=== PATIENT | female | born 1930 | race Caucasian/White ===

== ENCOUNTER 2017-09-09 11:50 | Emergency (ER) | payer MEDICARE ==
--- NOTE | 2017-09-09 13:48 | ER Document Report ---
ED Blood Pressure Problem - General Chief Complaint: Low Blood Pressure Stated Complaint: BLOOD PRESSURE PROBLEM Time Seen by Provider: 09/09/17 13:47 Notes: patient patient is an 87-year-old female who presents emergency department with a chief complaint of hypotension. Daughter states that they have a blood pressure cuff at home that was reading with a systolic less than 80. She admits that over the past 2-3 weeks after taking her morning atenolol and diuretic that she has periods of dizziness and lightheadedness that last for a couple hours and resolve in the afternoon. They have not followed with her primary care provider regarding this. There is no associated focal weakness, numbness or tingling. History of hypertension, hypothyroidism status post Graves' disease intersection , depression and recurrent UTIs follows [facility] TRAVEL OUTSIDE OF THE [place] IN LAST 30 DAYS: No - Related Data Allergies/Adverse Reactions: Sulfa (Sulfonamide Antibiotics) Allergy (Verified 09/09/17 11:53) Past Medical History - Social History Smoking Status: Never Smoker Family History: Reviewed & Not Pertinent Review of Systems - Review of Systems Constitutional: See HPI Cardiovascular: No symptoms reported Respiratory: No symptoms reported Gastrointestinal: No symptoms reported Genitourinary: No symptoms reported Musculoskeletal: No symptoms reported Neurological/Psychological: See HPI -: Yes All other systems reviewed and negative Physical Exam - Vital signs Vitals: Resp Pulse Ox 15 100 09/09/17 13:09 09/09/17 13:09 - Notes Notes: PHYSICAL EXAM GENERAL: Alert, interacts well. HEAD: Normocephalic, atraumatic. EYES: Pupils equal, round, and reactive to light. Extraocular movements intact. ENT: Oral mucosa moist, tongue midline. NECK: Full range of motion. Supple. Trachea midline. LUNGS: Clear to auscultation bilaterally, no wheezes, rales, or rhonchi. No respiratory distress. HEART: Regular rate and rhythm. No murmurs, gallops, or rubs. ABDOMEN: Soft, nondistended, nontender. No guarding, rebound, or rigidity.. Bowel sounds present in all 4 quadrants. EXTREMITIES: Moves all 4 extremities spontaneously. No edema, radial and dorsalis pedis pulses 2/4 bilaterally. No cyanosis. NEUROLOGICAL: Alert and oriented x4. Face symmetric. Tongue protrudes midline. Extraocular motions intact. Pupils are 2 mm and equally reactive. Normal speech, normal gait. 5 out of 5 strength in both the distal and proximal upper and lower extremities bilaterally. Sensation is grossly intact throughout. Finger to nose testing normal. Pronator drift normal. PSYCH: Normal affect, normal mood. SKIN: Warm, dry, normal turgor. No rashes or lesions noted. Course - Re-evaluation Re-evalutation: 09/09/17 14:42 Patient is an 87-year-old female who presents emergency department the chief complaint of dizziness that is been every day after taking her morning meds. She takes 50 mg of atenolol and is on 25 mg bilateral hydrochlorothiazide. Patient able to ambulate without any difficulty without any associated dizziness , orthostatic hypotension. No evidence of positional tachycardia. Patient denies any symptoms at this time. EKG does show occasional PACs without any evidence of ST elevations. Patient has been chest pain-free. Did review this workup with family at the bedside who is requesting blood work to be drawn given her age 0509/09/17 16:20 CBC stable without evidence of leukocytosis or anemia. Chemistry does show mild hyponatremia at 131. Patient's troponin is negative. Family requesting a copy of blood work to be discharged home. Did recommend to hold the a.m. dose of atenolol and to follow-up with primary care tomorrow. - Vital Signs Vital signs: Temp Pulse Resp BP Pulse Ox 63 15 150/84 H 98 09/09/17 14:16 09/09/17 13:09 09/09/17 14:16 09/09/17 13:10 - Laboratory Result Diagrams: 09/09/17 15:05 09/09/17 15:05 Laboratory results interpreted by ne: 09/09/17 15:05 Sodium 131.8 L Chloride 93 L BUN 24 H Glucose 113 H - EKG Interpretation by Ma EKG shows normal: Sinus rhythm Rate: Normal Rhythm: APC's When compared to previous EKG there are: Previous EKG unavailable Discharge - Discharge Clinical Impression: Hypotension Condition: Good Disposition: HOME, SELF-CARE Instructions: Hypotension ([facility]) Additional Instructions: Please hold her a.m. dose of atenolol and follow-up with your primary care tomorrow Referrals: MICKEY GARCIA PA-C [Primary Care Provider] - Follow up tomorrow
--- NOTE | 2017-09-09 14:50 | EKG REPORT ---
SEVERITY:- OTHERWISE NORMAL ECG - SINUS RHYTHM ATRIAL PREMATURE COMPLEX : Confirmed by: Juice Mann MD 09-Sep-2017 14:50:07
[2017-09-09 15:54] LABS: ABSOLUTE BASOPHILS # (AUTO) 0.1 10^3/uL (0.0-0.2); ABSOLUTE EOSINOPHILS # (AUTO) 0.2 10^3/uL (0.0-0.6); ABSOLUTE LYMPHOCYTES (AUTO) 1.2 10^3/uL (0.5-4.7); ABSOLUTE MONOCYTES (AUTO) 0.6 10^3/uL (0.1-1.4); ABSOLUTE NEUT (AUTO) 3.6 10^3/uL (1.7-8.2); BASOPHILS % (AUTO) 1.8 % (0-2); EOSINOPHILS % (AUTO) 3.5 % (0-6); HEMATOCRIT 38.4 % (36.0-47.0); HEMOGLOBIN 12.8 g/dL (12.0-15.5); LYMPHOCYTES % (AUTO) 20.8 % (13-45); MEAN CORPUSCULAR HEMOGLOBIN 30.8 pg (27.0-33.4); MEAN CORPUSCULAR HGB CONC 33.3 g/dL (32.0-36.0); MEAN CORPUSCULAR VOLUME 93 fl (80-97); PLATELET COUNT 206 10^3/uL (150-450); RED BLOOD COUNT 4.15 10^6/uL (3.72-5.28); RED CELL DISTRIBUTION WIDTH 13.9 % (11.5-14.0); SEGMENTED NEUTROPHILS % (AUTO) 62.9 % (42-78); TOTAL CELLS COUNTED % (AUTO) 100 %; WHITE BLOOD COUNT 5.8 10^3/uL (4.0-10.5)
[2017-09-09 16:01] LABS: ALANINE AMINOTRANSFERASE 24 U/L (9-52); ALBUMIN 3.9 g/dL (3.5-5.0); ALKALINE PHOSPHATASE 88 U/L (38-126); ANION GAP 9 (5-19); ASPARTATE AMINO TRANSFERASE 21 U/L (14-36); BILIRUBIN,DIRECT 0.2 mg/dL (0.0-0.4); BILIRUBIN,TOTAL 0.2 mg/dL (0.2-1.3); BLOOD UREA NITROGEN 24 mg/dL (7-20); CALCIUM 9.8 mg/dL (8.4-10.2); CARBON DIOXIDE 30 mmol/L (22-30); CHLORIDE 93 mmol/L (98-107); GLUCOSE 113 mg/dL (75-110); POTASSIUM 4.6 mmol/L (3.6-5.0); SODIUM 131.8 mmol/L (137-145); TOTAL PROTEIN 6.7 g/dL (6.3-8.2)
[2017-09-09 19:49] VITALS: BP 153/86
== END 2017-09-09 16:30 | disposition home or self-care (01) ==
LOC: ER 11:50
DX: I95.9 Hypotension, unspecified (principal); R42 Dizziness and giddiness; E87.1 Hypo-osmolality and hyponatremia; Z88.2 Allergy status to sulfonamides; Z87.440 Personal history of urinary (tract) infections
CPT/HCPCS: 36415; 80053; 84484; 85025; 93005; 93010; 99285

== ENCOUNTER → 2019-02-04 | Outpatient (CLI) | payer MEDICARE ==
--- NOTE | 2019-02-04 16:28 | RADIOLOGY REPORT (SQ) ---
EXAM DESCRIPTION: CT HEAD WITHOUT COMPLETED DATE/TIME: 02/04/2019 3:25 pm REASON FOR STUDY: R41.0 DISORIENTATION, UNSPECIFIED R41.0 DISORIENTATION, UNSPECIFIED COMPARISON: None. TECHNIQUE: Axial images acquired through the brain without intravenous contrast. Images reviewed wi th bone, brain and subdural windows. Additional sagittal and coronal reconstructions were generated. Images stored on PACS. All CT scanners at this facility use dose modulation, iterative reconstruction, and/or weight based d osing when appropriate to reduce radiation dose to as low as reasonably achievable (ALARA). [facility]: Dose Right [facility]: CareDose [facility]: Dose Right [facility]: Teradose 4D [facility]: [employer] RADIATION DOSE: CT Rad equipment meets quality standard of care and radiation dose reduction techniq ues were employed. CTDIvol: 48.6 mGy. DLP: 905 mGy-cm. mGy. LIMITATIONS: None. FINDINGS: VENTRICLES: Prominent ventricles secondary to involutional atrophy. CEREBRUM: Cortical atrophy. No masses. No hemorrhage. No midline shift. No evidence for acute inf arction. Areas of low density in the white matter most likely chronic small vessel ischemic changes. CEREBELLUM: No masses. No hemorrhage. No alteration of density. No evidence for acute infarction. EXTRAAXIAL SPACES: No fluid collections. No masses. ORBITS AND GLOBE: No intra- or extraconal masses. Normal contour of globe without masses. CALVARIUM: No fracture. PARANASAL SINUSES: There is a 14 mm densely calcified/ossified lesion in the lateral wall the left ma xillary sinus. SOFT TISSUES: No mass or hematoma. OTHER: No other significant finding. IMPRESSION: MICROVASCULAR ISCHEMIA AND GENERALIZED ATROPHY. NO ACUTE IMAGING FINDINGS IN THE BRAIN. DENSELY CALCIFIED/ OSSIFIED LESION IN THE LATERAL WALL THE LEFT MAXILLARY SINUS. GENERALLY BENIGN I N APPEARANCE. EVIDENCE OF ACUTE STROKE: NO. COMMENT: Quality ID # [id number]: Final reports with documentation of one or more dose reduction techniques (e.g., Automated exposure control, adjustment of the mA and/or kV according to patient size, use of iterative reconstruction technique) TECHNICAL DOCUMENTATION: JOB ID: [id number] [employer]- All Rights Reserved Reading location - IP/workstation name: [email or web address]
== END ==
LOC: RAD 15:07
PROVIDERS: ATTEND Family Medicine
DX: I67.82 Cerebral ischemia (principal); R41.0 Disorientation, unspecified; G31.9 Degenerative disease of nervous system, unspecified
CPT/HCPCS: 70450

== ENCOUNTER 2019-02-14 14:04 | Emergency (ER) | payer MEDICARE ==
--- NOTE | 2019-02-14 14:57 | ER Document Report ---
ED General - General Chief Complaint: Blood Pressure Problem Stated Complaint: BLOOD PRESSURE CONCERNS Time Seen by Provider: 02/14/19 14:48 Primary Care Provider: KATIANA KITCHEN MD [Primary Care Provider] - Follow up as needed TRAVEL OUTSIDE OF THE [place] IN LAST 30 DAYS: No - HPI Notes: This is a very pleasant 88-year-old female who presents the emergency department for evaluation. Evidently she was sitting in her chair when she yelled out for her granddaughter. She stated that she could not see. Over the course of 20 minutes, her voice became softer and slurred, she continued to get weak. Blood pressure was taken and found to be low, so EMS was called. EMS found her blood pressure to be in the 70s. Patient states that she may have felt dizzy beforehand, but does not really remember specifically. She had a normal morning. Had breakfast, went and took a shower. She currently takes her medications as directed, her granddaughter distributes them to her. No recent changes in her medicines other than the addition of another half of an atenolol in the morning. Otherwise she is had no acute complaints or concerns. She denies any pain at this time. She states she just feels weak. - Related Data Allergies/Adverse Reactions: Sulfa (Sulfonamide Antibiotics) Allergy (Verified 09/09/17 11:53) Past Medical History - General Information source: Patient, Relative - Social History Smoking Status: Never Smoker Chew tobacco use (# tins/day): No Frequency of alcohol use: None Drug Abuse: None Family History: Reviewed & Not Pertinent Patient has suicidal ideation: No Patient has homicidal ideation: No - Past Medical History Cardiac Medical History: Reports: Hx Hypertension EENT Medical History: Reports: Eyes - Glaucoma Endocrine Medical History: Reports: Hx Hypothyroidism Renal/ Medical History: Denies: Hx Peritoneal Dialysis Psychiatric Medical History: Reports: Hx Depression Past Surgical History: Reports: Hx Appendectomy, Hx Cholecystectomy, Hx Hysterectomy, Hx Thyroid Surgery, Hx Tonsillectomy Review of Systems - Review of Systems Constitutional: See HPI EENT: No symptoms reported Cardiovascular: No symptoms reported Respiratory: No symptoms reported Gastrointestinal: No symptoms reported Genitourinary: No symptoms reported Musculoskeletal: No symptoms reported Skin: No symptoms reported Neurological/Psychological: See HPI Physical Exam - Vital signs Vitals: Temp Resp BP Pulse Ox 96.6 F L 21 H 153/82 H 96 02/14/19 14:21 02/14/19 14:21 02/14/19 14:21 02/14/19 14:21 - Notes Notes: Vital signs reviewed, please refer to chart. Head is normocephalic, atraumatic. Pupils equal round, reactive to light. Neck is supple without meningismus. Heart is regular rate and rhythm. Lungs are clear to auscultation bilaterally. Abdomen is soft, nontender, normoactive bowel sounds throughout. Extremities without cyanosis, clubbing. Posterior calves are nontender. Peripheral pulses are equal. Skin is warm and dry. Patient is awake, alert, disoriented to time but oriented to place. Cranial nerves II - XII are grossly intact without focal neurological deficits. Strength is plus 4 out of 5 bilateral upper and lower extremities. Sensation is intact. Reflexes symmetrical. Intact ktlivo-kiqk-ejlqgm, rapid alternating movements, gdpm-ya-salo. Course - Re-evaluation Re-evalutation: 02/14/19 18:03 Patient presents emergency department for evaluation. She had transiently low blood pressure. She was placed on a monitor car operator, septic labs were obtained. She is a normal neurological exam. Her blood pressure normalized here and never lowered again. In fact she became hypertensive, was given her afternoon dose of lisinopril. Her work-up here is essentially unremarkable, with the exception of her chest x-ray. Chest x-ray revealed widened mediastinum and concern for her aorta. This was discussed with family. Decision was made to proceed with CT of the chest to evaluate her aorta. 02/14/19 20:48 CT scan revealed significant thoracic and abdominal aortic aneurysms. Patient's blood pressure became higher at this point. I spoke with Dr. Bourne, vascular surgeon at [facility]. He asked that patient's blood pressure be managed aggressively, her heart rate kept below 70. She was given her first dose of metoprolol IV here. We will continue to monitor. He except the patient in transfer to the CVICU. 02/14/19 21:35 Patient did not respond to IV metoprolol. Given labetalol. Initially she responded well, but 15 minutes later patient's blood pressure is up to 172/103. Her heart rate remains in the 70s. Decision made to proceed with nicardipine drip, with as needed labetalol if blood pressure is greater than 160 and heart rate is greater than 70. - Vital Signs Vital signs: Temp Pulse Resp BP Pulse Ox 97.6 F 18 172/103 H 91 L 02/14/19 18:38 02/14/19 21:31 02/14/19 21:31 02/14/19 21:31 - Laboratory Result Diagrams: 02/14/19 16:10 02/14/19 16:10 Laboratory results interpreted by me: 02/14/19 02/14/19 02/14/19 15:43 16:10 16:10 RDW 14.1 H Sodium 134.9 L Carbon Dioxide 31 H POC Glucose 115 H - Diagnostic Test Radiology reviewed: Image reviewed, Reports reviewed - EKG Interpretation by Me Additional EKG results interpreted by me: 02/14/19 15:05 Sinus mechanism with rate of 72 bpm. Normal axis and intervals, no acute ST changes concerning for ischemia or infarction. Critical Care Note - Critical Care Note Total time excluding time spent on procedures (mins): 40 Discharge - Discharge Clinical Impression: Transient hypotension Thoracic aortic aneurysm Qualifiers: Presence of rupture: without rupture Qualified Code(s): I71.2 - Thoracic aortic aneurysm, without rupture Abdominal aortic aneurysm (AAA) Qualifiers: Presence of rupture: without rupture Qualified Code(s): I71.4 - Abdominal aortic aneurysm, without rupture Condition: Stable Disposition: [facility]CLUD[facility] Admitting Provider: Dr. Bourne Referrals: KATIANA KITCHEN MD [Primary Care Provider] - Follow up as needed
[2019-02-14 15:35] LABS: APPEARANCE,URINE CLEAR; BILIRUBIN,URINE NEGATIVE (NEGATIVE); COLOR,URINE YELLOW; GLUCOSE, URINE NEGATIVE (NEGATIVE); KETONES,URINE NEGATIVE (NEGATIVE); PROTEIN,URINE NEGATIVE (NEGATIVE); URINE SPECIFIC GRAVITY 1.005; UROBILINOGEN,URINE NEGATIVE mg/dL (<2.0)
--- NOTE | 2019-02-14 15:39 | EKG REPORT ---
SEVERITY:- ABNORMAL ECG - SINUS RHYTHM New T inversion anteroseptal leads V2. compared to 09/09/17 EKG : Confirmed by: Juice Mann MD 14-Feb-2019 15:39:08
[2019-02-14 16:22] LABS: ABSOLUTE BASOPHILS # (AUTO) 0.1 10^3/uL (0.0-0.2); ABSOLUTE EOSINOPHILS # (AUTO) 0.1 10^3/uL (0.0-0.6); ABSOLUTE LYMPHOCYTES (AUTO) 0.9 10^3/uL (0.5-4.7); ABSOLUTE MONOCYTES (AUTO) 0.5 10^3/uL (0.1-1.4); ABSOLUTE NEUT (AUTO) 3.8 10^3/uL (1.7-8.2); BASOPHILS % (AUTO) 0.9 % (0-2); EOSINOPHILS % (AUTO) 1.2 % (0-6); HEMOGLOBIN 12.4 g/dL (12.0-15.5); LYMPHOCYTES % (AUTO) 16.3 % (13-45); MEAN CORPUSCULAR HEMOGLOBIN 29.9 pg (27.0-33.4); MEAN CORPUSCULAR HGB CONC 32.6 g/dL (32.0-36.0); MEAN CORPUSCULAR VOLUME 92 fl (80-97); MONOCYTES % (AUTO) 10.1 % (3-13); PLATELET COUNT 175 10^3/uL (150-450); RED BLOOD COUNT 4.14 10^6/uL (3.72-5.28); RED CELL DISTRIBUTION WIDTH 14.1 % (11.5-14.0); SEGMENTED NEUTROPHILS % (AUTO) 71.5 % (42-78); TOTAL CELLS COUNTED % (AUTO) 100 %; WHITE BLOOD COUNT 5.4 10^3/uL (4.0-10.5)
[2019-02-14 16:32] LABS: INTERNATIONAL RATION (INR) 0.97; PROTHROMBIN TIME 12.9 SEC (11.4-15.4)
[2019-02-14 16:49] LABS: ALBUMIN 3.5 g/dL (3.5-5.0); ALKALINE PHOSPHATASE 117 U/L (38-126); ANION GAP 5 (5-19); ASPARTATE AMINO TRANSFERASE 16 U/L (14-36); BILIRUBIN,DIRECT 0.2 mg/dL (0.0-0.4); BILIRUBIN,TOTAL 0.4 mg/dL (0.2-1.3); BLOOD UREA NITROGEN 13 mg/dL (7-20); CALCIUM 9.3 mg/dL (8.4-10.2); CARBON DIOXIDE 31 mmol/L (22-30); CHLORIDE 99 mmol/L (98-107); GLUCOSE 101 mg/dL (75-110); POTASSIUM 4.5 mmol/L (3.6-5.0); TOTAL PROTEIN 6.4 g/dL (6.3-8.2)
--- NOTE | 2019-02-14 17:44 | RADIOLOGY REPORT (SQ) ---
EXAM DESCRIPTION: CHEST 2 VIEWS COMPLETED DATE/TIME: 02/14/2019 5:24 pm REASON FOR STUDY: hypotension COMPARISON: None. EXAM PARAMETERS: NUMBER OF VIEWS: two views TECHNIQUE: Digital Frontal and Lateral radiographic views of the chest acquired. RADIATION DOSE: NA LIMITATIONS: none FINDINGS: LUNGS AND PLEURA: No opacities, masses or pneumothorax. No pleural effusion. MEDIASTINUM AND HILAR STRUCTURES: Widened mediastinum with an enlarged and protrudes appearing thorac ic aorta. Rightward tracheal deviation at the level of the thoracic aorta. HEART AND VASCULAR STRUCTURES: Heart normal size. No evidence for failure. BONES: No acute findings. HARDWARE: None in the chest. OTHER: No other significant finding. IMPRESSION: Widened mediastinum with an enlarged and tortuous appearing thoracic aorta. In the prov ided clinical setting of hypertension, these findings are concerning for dissection. TECHNICAL DOCUMENTATION: JOB ID: [id number] [employer]- All Rights Reserved Reading location - IP/workstation name: [email or web address]
[2019-02-14 18:03] LABS: VENOUS BLOOD BASE EXCESS 3.1 mmol/L; VENOUS BLOOD HCO3 29.9 mmol/L (20-32); VENOUS BLOOD PCO2 55.4 mmHg (35-63); VENOUS BLOOD PH 7.35 (7.30-7.42)
--- NOTE | 2019-02-14 19:53 | RADIOLOGY REPORT (SQ) ---
EXAM DESCRIPTION: CTA CHEST COMPLETED DATE/TIME: 02/14/2019 6:59 pm REASON FOR STUDY: eval aorta COMPARISON: Chest radiographs earlier performed on 02/14/2019 TECHNIQUE: CT scan of the chest performed using helical scanning technique with dynamic intravenous contrast injection. Images reviewed with lung, soft tissue and bone windows. Reconstructed coronal and sagittal MPR images reviewed. Additional 3 dimensional post-processing performed to develop Maximal Intensity Projection images (NE P). All images stored on PACS. All CT scanners at this facility use dose modulation, iterative reconstruction, and/or weight based d osing when appropriate to reduce radiation dose to as low as reasonably achievable (ALARA). [facility]: Dose Right [facility]: CareDose [facility]: Dose Right [facility]: Teradose 4D [facility]: [employer] CONTRAST TYPE AND DOSE: contrast/concentration: Isovue 350.00 mg/ml; Total Contrast Delivered: 52.0 ml; Total Saline Delivered: 78.0 ml 52 mL Isovue 350- low osmolar. Contrast bolus optimized for the thoracic aorta. Not diagnostic for the pulmonary arteries. RENAL FUNCTION: BUN 13, creatinine 0.85 RADIATION DOSE: CT Rad equipment meets quality standard of care and radiation dose reduction techniq ues were employed. CTDIvol: 14.3 - 23.2 mGy. DLP: 451 mGy-cm. . LIMITATIONS: None. FINDINGS: LUNGS AND PLEURA: Strandy bibasilar densities likely representing atelectasis. 1.1 cm lef t lower lobe solid pulmonary nodule (Image 87). No pneumothorax or pleural effusion. AORTA AND GREAT VESSELS: Aneurysmal dilatation of the thoracic aorta with the mid to distal descendin g thoracic aorta measuring up to 5 cm in diameter. Aneurysmal dilatation of the proximal abdominal a xi measuring 3.4 cm in diameter. Intramural plaque extending from the aortic arch to the proximal abdominal aorta. Crescentic intramural plaque most part 1 from the mid to distal thoracic aorta, alt stephen demonstrates no increased attenuation. No dissection flap identified. HEART: No pericardial effusion. No significant coronary artery calcifications. PULMONARY ARTERIES: Mild enlargement of the main pulmonary artery measuring 3.5 cm. No large emboli visualized in the main pulmonary arteries or the segmental branches. HILAR AND MEDIASTINAL STRUCTURES: No identified masses or abnormal nodes. HARDWARE: None in the chest. UPPER ABDOMEN: Calcified splenic granuloma. Incompletely visualized 1.6 cm right kidney superior abhi e cystic lesion. THYROID AND OTHER SOFT TISSUES: No masses. No adenopathy. BONES: No acute or significant finding. 3D MIPS: Confirm above findings. OTHER: No other significant finding. IMPRESSION: Descending thoracic aortic aneurysm measuring 5 cm. Intramural plaque most prevalent wi thin the mid to distal thoracic aorta without demonstrable hyperattenuation to suggest intramural hem atoma. However note that intramural hematoma is difficult to exclude as this is a contrasted contras t study. No dissection. Proximal abdominal aortic aneurysm measuring 3.4 cm. Mild enlargement of the main pulmonary artery measuring 3.5 cm, finding which may be seen with pulmon susan arterial hypertension. Incidental solitary left basilar 11 mm solid pulmonary nodule. Per Fleischner Society guidelines con orthodontist follow up CT at 3 months, PET-CT or tissue sampling. COMMENT: Quality ID # 436: Final reports with documentation of one or more dose reduction techniques (e.g., Automated exposure control, adjustment of the mA and/or kV according to patient size, use of iterative reconstruction technique) TECHNICAL DOCUMENTATION: JOB ID: [id number] [employer]- All Rights Reserved Reading location - IP/workstation name: [email or web address]
[2019-02-14] MEDS ORDERED: METOPROLOL TARTRATE PF/INJ 5 MG/5 ML SDV IV ONE (20:34)
[2019-02-14] MEDS ORDERED: LABETALOL HCL INJ 20 MG/4 ML DISP.SYRIN IV ONE (21:01)
[2019-02-14] MEDS ORDERED: NICARDIPINE HCL RTU, ISO-OS 20 MG/200 ML RTUINJ IV PRN (21:34)
[2019-02-14 22:26] VITALS: BP 161/94
== END 2019-02-14 22:26 | disposition short-term general hospital (02) ==
LOC: ER 14:04
DX: I95.9 Hypotension, unspecified (principal); I71.2 Thoracic aortic aneurysm, without rupture; I71.4 Abdominal aortic aneurysm, without rupture; R53.1 Weakness; I10 Essential (primary) hypertension; Z79.899 Other long term (current) drug therapy; Z88.2 Allergy status to sulfonamides
CPT/HCPCS: 93005; 36415; 87040; 82962; 84443; 85025; 85610; 80053; 81001; 84484; 82803; 83605; 71046; 71275; 93010; J3490 ×3; 51701; 96365; 96375; 99291

== ENCOUNTER → 2019-04-09 | Outpatient (CLI) | payer MEDICARE ==
--- NOTE | 2019-04-09 12:45 | RADIOLOGY REPORT (SQ) ---
EXAM DESCRIPTION: T SPINE AP/LAT COMPLETED DATE/TIME: 04/09/2019 12:24 pm REASON FOR STUDY: FALL, INITIAL ENCOUNTER/ACUTE MIDLINE BACK PAIN W19.XXXA UNSPECIFIED FALL, INITIA L ENCOUNTER M54.5 LOW BACK PAIN R07.81 PLEURODYNIA COMPARISON: None. NUMBER OF VIEWS: Two views. TECHNIQUE: AP and lateral radiographic images acquired of the thoracic spine. LIMITATIONS: None. FINDINGS: MINERALIZATION: Decreased. ALIGNMENT: Normal. No scoliosis. VERTEBRAE: No fracture or bone lesion. Maintained height, normal segmentation. DISCS: Mild multilevel spondylosis. HARDWARE: None in the spine. Prior cholecystectomy. MEDIASTINUM AND SOFT TISSUES: Unfolded thoracic aorta. VISUALIZED LUNG PASTRANA: Clear. OTHER: No other significant finding. IMPRESSION: No evidence of acute bony abnormality of the thoracic spine. Decreased osseous mineralization. TECHNICAL DOCUMENTATION: JOB ID: [id number] [employer]- All Rights Reserved Reading location - IP/workstation name: [email or web address]
--- NOTE | 2019-04-09 12:47 | RADIOLOGY REPORT (SQ) ---
EXAM DESCRIPTION: CHEST 2 VIEWS COMPLETED DATE/TIME: 04/09/2019 12:24 pm REASON FOR STUDY: RIB PAIN ON RIGHT SIDE COMPARISON: 02/14/2019 EXAM PARAMETERS: NUMBER OF VIEWS: two views TECHNIQUE: Digital Frontal and Lateral radiographic views of the chest acquired. RADIATION DOSE: NA LIMITATIONS: none FINDINGS: LUNGS AND PLEURA: No opacities, masses or pneumothorax. No pleural effusion. MEDIASTINUM AND HILAR STRUCTURES: No masses or contour abnormalities. HEART AND VASCULAR STRUCTURES: Ectasia and tortuosity of the descending aorta. BONES: No acute findings. HARDWARE: None in the chest. OTHER: No other significant finding. IMPRESSION: Ectasia and tortuosity of the descending aorta. No acute pulmonary findings. TECHNICAL DOCUMENTATION: JOB ID: [id number] [employer]- All Rights Reserved Reading location - IP/workstation name: [email or web address]
--- NOTE | 2019-04-09 12:47 | RADIOLOGY REPORT (SQ) ---
EXAM DESCRIPTION: RIBS RIGHT W/O PA CHEST COMPLETED DATE/TIME: 04/09/2019 12:24 pm REASON FOR STUDY: RIB PAIN ON RIGHT SIDE W19.XXXA UNSPECIFIED FALL, INITIAL ENCOUNTER M54.5 LOW BA CK PAIN R07.81 PLEURODYNIA COMPARISON: None. NUMBER OF VIEWS: Two views. TECHNIQUE: Images acquired of the right ribs in the area of focal concern. LIMITATIONS: None. FINDINGS: RIBS: No acute displaced fracture. No worrisome bone lesions. Decreased osseous minerali zation. LUNGS: Limited exam. No obvious pneumothorax. No pleural effusion. OTHER: Prior cholecystectomy. IMPRESSION: No rib fracture identified. COMMENT: SITE OF TRAUMA/COMPLAINT MARKED/STAMP COMPLETED: NO. TECHNICAL DOCUMENTATION: JOB ID: [id number] [employer]- All Rights Reserved Reading location - IP/workstation name: [email or web address]
--- NOTE | 2019-04-09 12:49 | RADIOLOGY REPORT (SQ) ---
EXAM DESCRIPTION: L SPINE WHOLE COMPLETED DATE/TIME: 04/09/2019 12:24 pm REASON FOR STUDY: FALL, INITIAL ENCOUNTER/ACUTE MIDLINE BACK PAIN W19.XXXA UNSPECIFIED FALL, INITIA L ENCOUNTER M54.5 LOW BACK PAIN R07.81 PLEURODYNIA COMPARISON: None. NUMBER OF VIEWS: Five views including obliques. TECHNIQUE: AP, lateral, oblique, and sacral radiographic images acquired of the lumbar spine. LIMITATIONS: None. FINDINGS: MINERALIZATION: Normal. SEGMENTATION: Normal. No transitional anatomy. ALIGNMENT: Grade 1 anterolisthesis of L4 on L5. Mild dextroscoliosis. VERTEBRAE: Maintained height. No fracture or worrisome bone lesion. DISCS: L4-5 and L5-S1 disc spaces are narrowed. POSTERIOR ELEMENTS: Hypertrophic facet changes from L3-S1. HARDWARE: None in the spine. PARASPINAL SOFT TISSUES: Normal. PELVIS: Intact as visualized. No fractures or worrisome bone lesions. SI joints intact. OTHER: No other significant finding. IMPRESSION: Mild scoliosis. Anterolisthesis of L4 on L5. Facet arthropathy. Degenerative disc dis ease. TECHNICAL DOCUMENTATION: JOB ID: [id number]- All Rights Reserved Reading location - IP/workstation name: [email or web address]
== END ==
LOC: RAD 11:44
PROVIDERS: ATTEND Family Medicine
DX: M54.5 Low back pain (principal); R07.81 Pleurodynia; W19.XXXA Unspecified fall, initial encounter; M51.36 Other intervertebral disc degeneration, lumbar region; I77.811 Abdominal aortic ectasia
CPT/HCPCS: 71046; 72070; 72110